=== PATIENT | male | born 1970 | race Caucasian/White ===

== ENCOUNTER 2018-03-19 14:30 | Emergency (ER) | payer BC ==
[~2018-03-19] VITALS: Ht 185.4 cm; Wt 104.3 kg
[2018-03-19 14:43] VITALS: BP 110/69
== END 2018-03-19 17:38 | disposition home or self-care (01) ==
LOC: ER 14:34
DX: R06.6 Hiccough (principal); K21.9 Gastro-esophageal reflux disease without esophagitis; F10.10 Alcohol abuse, uncomplicated; Y90.9 Presence of alcohol in blood, level not specified